=== PATIENT | female | born 1965 | race Two or more races ===

== ENCOUNTER 2024-11-04 08:00 | Day surgery (SDC) | payer OTHER ==
[~2024-11-04 08:00] MED LIST: MULTI-VITAMIN1 EACH PO; SYNTHROID88 MCG PO
[2024-11-04] MEDS ORDERED: POVIDONE-IODINE 118 ML BOTT TOP ONE (14:16)
[2024-11-04] MEDS ORDERED: IBU600 MG PO (14:59)
== END 2024-11-04 18:30 | disposition home or self-care (01) ==
LOC: CIR.AMB 08:00
PROVIDERS: ATTEND Obstetrics & Gynecology Gynecology
DX: N84.0 Polyp of corpus uteri (principal); E03.8 Other specified hypothyroidism; M19.90 Unspecified osteoarthritis, unspecified site